=== PATIENT | female | born 1995 | race Caucasian/White ===

== ENCOUNTER 2016-06-23 16:06 | Emergency (ER) | payer BC, MEDICAID ==
--- NOTE | ~2016-06-23 | ER ---
PATIENT'S NAME: MATT NAVARRO [facility] AGE: 20 Y [address] ROOM: [place], [place] [address] LOCATION: ED ADMIT DATE: 06/23/2016 ER/Outpatient Report DISCHARGE DATE: 06/23/2016 FAMILY PHYSICIAN: Ana M He MD ATTENDING PHYSICIAN: Nick Krishna Time of Arrival: 1622 hours. Time of Evaluation: 1622 hours. CHIEF COMPLAINT: Right upper quadrant abdominal pain. HISTORY OF PRESENT ILLNESS: The patient states that she has had right upper quadrant abdominal pain for the past 2 weeks, but it seems to have gotten worse over the last 2 days. She states it is pretty much stays in the right upper quadrant. It is sharp at times. Food does not make any difference. Positioning does not make any difference. She denies any vaginal bleeding. She has not had any vaginal leaking. She is at 19 weeks with twins. Last menstrual period was on 02/08/2016. Her due date is on 11/14/2016. She is 1, para 0. She denies any change in her bowel or bladder pattern. She states that she sees Dr. Browne for OB, reports she is scheduled to be seen again on July 10. She states she has talked to Dr. Browne about the discomfort but did not contact her today about it. ALLERGIES: NO KNOWN ALLERGIES. CURRENT MEDICATIONS: Include vitamins. PAST MEDICAL HISTORY: Benign. PAST SURGICAL HISTORY: Negative. SOCIAL HISTORY: Denies use of tobacco, drugs, or alcohol. REVIEW OF SYSTEMS: All negative other than those mentioned in the HPI. PHYSICAL EXAMINATION: VITAL SIGNS: She weighs 77 kg, blood pressure is 114/68, pulse of 100, PATIENT'S NAME: MATT NAVARRO [facility] AGE: 20 Y [address] ROOM: [place], [place] [address] LOCATION: ED ADMIT DATE: 06/23/2016 ER/Outpatient Report DISCHARGE DATE: 06/23/2016 FAMILY PHYSICIAN: Ana M He MD ATTENDING PHYSICIAN: Nick Krishna respirations 20, temperature of 98.6 tympanic, O2 saturations 100% on room air. GENERAL: She is awake, alert, and oriented x4. SKIN: Her skin is pink, warm, and dry. RESPIRATIONS: Even and nonlabored. Lung sounds are clear throughout. HEART: Regular rate and rhythm. ABDOMEN: Soft and nondistended. Bowel sounds are present. She is tender to palpate in the right upper quadrant. heart tones are completed. Able to hear one in the left lower quadrant at 155, and then another heart rate in the mid to right area was 166. LABORATORY DATA AND X-RAYS: Lab work was drawn. UA was obtained. CBC shows a white count of 11.3, hemoglobin is 10.6, hematocrit 30.3. Chem panel: Sodium is 140, potassium is 3.3, and chlorides are 105. Her amylase is 51 with a lipase of 122. UA does show 25 leukocytes, 25 of blood. Micro showed 2-5 white cells and moderate bacteria. Ultrasound of the gallbladder area was completed. Radiologist reports no acute cholelithiasis or cholecystitis. continues to be normal. IMPRESSION: 1. Right upper quadrant abdominal pain. 2. Urinary tract infection. PLAN: Home, rest, fluids. Tylenol as needed for discomfort. She could try heat or ice to the right upper quadrant area. We will write a prescription for Macrobid for the UTI. Encouraged to call and follow up with her [employer] in the next 1 to 2 days if the pain persists. She verbalized understanding. ISAIAS LOVE APRN FOR [facility]/elin /[id number] d: 06/24/16 0205 t: 07/01/16 2143, OUTPATIENT REPORT
[2016-06-23 16:43] LABS: BASOPHIL % 0.2 %; EOSINOPHIL # 0.1 K/uL (0.0-0.5); EOSINOPHIL % 0.9 %; HEMATOCRIT 30.3 % (33.0-46.0); HEMOGLOBIN 10.6 g/dL (11.0-15.0); IMMATURE GRANULOCYTE # 0.1 K/uL (0.0-0.3); IMMATURE GRANULOCYTE % 1.1 %; LYMPHOCYTE # 2.4 K/uL (0.8-4.0); LYMPHOCYTE % 20.9 %; MCH 29.8 pg (27.0-34.0); MCV 85.1 fl (83.0-98.0); MONOCYTE # 0.6 K/uL (0.0-1.0); MONOCYTE % 5.4 %; MPV 9.2 fl (9.4-12.4); NEUTROPHIL # (ANC) 8.1 K/uL (1.8-7.8); NEUTROPHIL % 71.5 %; NRBC % 0 /100WBC (0-0.00); RBC 3.56 M/uL (3.50-5.00); RDW-CV 13.1 % (11.9-14.6); WBC 11.3 K/uL (4.0-11.0)
[2016-06-23 16:45] LABS: PLATELET COUNT 192 K/uL (150-450)
[2016-06-23 17:04] LABS: ALK PHOS 84 IU/L (33-138); ALT 15 IU/L (12-78); ANION GAP 12.3 (10.0-19.0); AST 12 IU/L (10-40); BLOOD UREA NITROGEN 8 mg/dL (6-24); CALCIUM 8.7 mg/dL (8.5-10.5); CHLORIDE 105 mMol/L (96-110); CO2 26 mMol/L (22-32); CREATININE 0.6 mg/dL (0.5-1.1); ESTIMATED GFR (MDRD EQUATION) > 60; POTASSIUM 3.3 mMol/L (3.7-5.1); SODIUM 140 mMol/L (135-145); TOTAL PROTEIN 6.7 g/dL (6.0-8.4)
[2016-06-23 17:05] LABS: TOTAL BILIRUBIN 0.2 mg/dL (0.0-1.5)
[2016-06-23 17:20] LABS: BILIRUBIN URINE NEGATIVE (NEGATIVE); BLOOD URINE 25 /UL (NEGATIVE); COLOR URINE YELLOW (YELLOW); GLUCOSE URINE NEGATIVE (NEGATIVE); KETONE URINE NEGATIVE (NEGATIVE); LEUKOCYTES URINE 25 /UL (NEGATIVE); NITRITE URINE NEGATIVE (NEGATIVE); PROTEIN URINE NEGATIVE (NEGATIVE); SPEC GRAVITY URINE 1.025 (1.003-1.035); TURBIDITY URINE CLEAR (CLEAR); UROBILINOGEN URINE 1 mg/dL (NORMAL)
[2016-06-23 17:26] LABS: BACTERIA URINE MODERATE (NEGATIVE); MUCUS URINE 2+ (NEGATIVE)
== END 2016-06-23 17:40 | disposition disaster alternative care site (69) ==
LOC: GMED 16:06
PROVIDERS: Emergency Medicine; Nurse Practitioner Family
DX: O23.42 Unspecified infection of urinary tract in pregnancy, second trimester (principal); O99.89 Other specified diseases and conditions complicating pregnancy, childbirth and the puerperium; R10.11 Right upper quadrant pain; Z3A.19 19 weeks gestation of pregnancy